=== PATIENT | male | born 1985 ===

== ENCOUNTER 2016-09-23 19:35 | Emergency (ER) | payer OTHER ==
[2016-09-23 22:19] LABS: BASOPHILS 0.3 % (0-2); CALC OSMOLALITY 273 mosm/kg (275-300); CALCIUM 9.4 mg/dL (8.5-10.1); CARBON DIOXIDE 25.5 mmol/L (21.0-32.0); CHLORIDE - SERUM 98 mmol/L (98-107); CREATININE - SERUM 0.8 mg/dL (0.6-1.3); EOSINOPHILS 0.8 % (0-7); GLUCOSE 98 mg/dL (74-106); HEMATOCRIT 45.2 % (42.0-54.0); HEMOGLOBIN 15.7 g/dL (13.5-17.5); IMMATURE GRANULOCYTES 0.3 % (0-5); LYMPHOCYTES 21.3 % (15-50); MCH 31.8 pg (26.0-34.0); MCHC 34.7 g/dL (31.0-37.0); MCV 91.5 fL (80.0-100.0); MEAN PLATELET VOLUME 9.7 fL (7.4-10.4); MONOCYTES 5.9 % (2-11); NEUTROPHILS 71.4 % (40-80); PLATELET COUNT 249 10x3/uL (130-400); POTASSIUM - SERUM 3.4 mmol/L (3.5-5.1); RBC 4.94 10x6/uL (4.20-6.10); RDW 13.6 % (11.5-14.5); SODIUM 138 mmol/L (136-145); UREA NITROGEN 6 mg/dL (7-18); WBC 7.7 10x3/uL (4.8-10.8); eGFR NON AFRICAN AMERICAN > 90 mL/min (90-120)
== END 2016-09-23 23:54 | disposition home or self-care (01) ==
LOC: D.ER 19:35
PROVIDERS: Emergency Medicine
DX: R06.00 Dyspnea, unspecified (principal); F17.200 Nicotine dependence, unspecified, uncomplicated